=== PATIENT | female | born 1950 | race Caucasian/White ===

== ENCOUNTER 2017-07-22 13:27 | Inpatient (IN) ==
[2017-07-22] MEDS ORDERED: SODIUM CHLORIDE 0.9% 1,000 ML IV STA (15:26)
[2017-07-22 15:34] LABS: Basophils % 0.3 % (0.0-0.8); Eosinophils # 0.1 10*3/uL (0.0-0.87); Eosinophils % 1.2 % (0.00-10.9); Hematocrit 36.9 VOL% (35.7-47.0); Hemoglobin 12.1 GM/DL (12.0-16.0); Immature Granulocytes % 0.5 %; Immature Granulocytes Absolute 0.03 #; Lymphocytes # 1.1 10*3/uL (1.4-4.0); Lymphocytes % 16.5 % (21.3-54.2); Mean Corpuscular HGB Conc 32.8 GM/DL (32-36); Mean Corpuscular Hemoglobin 29 PG (27-34); Mean Corpuscular Volume 89.1 FL (87-102); Mean Platelet Volume 9.7 FL (9.6-12.0); Monocytes # 0.3 10*3/uL (0.11-0.8); Monocytes % 4.9 % (1.7-12.7); Neutrophils % 76.6 % (38.7-73.9); Platelet Count 243 T/CUMM (130-400); Red Blood Count 4.14 MC/CUMM (3.8-5.5); Red Cell Distribution Width 13.4 % (9.3-17.3); White Blood Count 6.5 T/CUMM (4-12)
[2017-07-22 15:47] LABS: PT Patient Result 10.7 SECS; Partial Thromboplastin Time 27.7 SECS (0-40)
[2017-07-22 15:48] LABS: Alanine Aminotransferase 18 U/L (13-56); Alkaline Phosphatase 98 U/L (45-117); Aspartate Amino Transferase 19 U/L (0-37); Calcium 9.2 MG/DL (8.5-10.1)
[2017-07-22 15:49] LABS: Amylase 44 U/L (25-115); Bilirubin,Total < 0.39 MG/DL (0.2-1.0); Blood Urea Nitrogen 20 MG/DL (7-18); Glucose 96 MG/DL (74-106); Osmolality,Calculated 268.4 MOS/KG (273-304); Potassium 3.8 MMOL/L (3.5-5.1); Sodium 133 MMOL/L (136-145); Total Protein 8.2 G/DL (6.4-8.3)
[2017-07-22 15:51] LABS: Troponin I Only < 0.015 NG/ML (0.00-0.045)
[2017-07-22 17:46] LABS: Apearance,Urine Slightly Hazy (Clear); Bacteria,Urine Moderate /HPF (Few); Bilirubin,Urine Negative (Negative); Blood, Urine Negative (Negative); Glucose,Urine (UA) Negative (Negative); Hyaline Casts,Urine 1 /LPF (0-3); Ketones,Urine Negative (Negative); Mucus,Urine Occasional /LPF (Occasional); Nitrite,Urine Negative (Negative); Protein,Urine Negative; RBC,Urine <1 /HPF (0-4); Squamous Epithelial Cell,Urine Occasional /HPF (0-10); Urine Color Yellow (Yellow); Urine Specific Gravity 1.006 (1.001-1.035); Urine Urobilinogen < 2.0 EU/DL (0.2-1.0); WBC,Urine 1 /HPF (0-6)
[2017-07-22 17:50] LABS: Barbiturates Screen,Urine Negative (Negative); Benzodiazepines Screen,Urine Negative (Negative); Cannabinoid Screen,Urine Negative (Negative); Opiate Screen,Urine Negative (Negative); Phencyclidine Screen,Urine Negative (Negative)
[2017-07-22] MEDS ORDERED: ONDANSETRON 4 MG/2 ML VIAL IV PRN (17:52)
[2017-07-23] MEDS: ZALEPLON 5 MG CAPSULE PO PRN (00:44)
[2017-07-23] MEDS: SODIUM CHLORIDE 0.9% 1,000 ML IV SCH ×2 (00:46→07:10)
[2017-07-23 05:08] LABS: Basophils % 0.2 % (0.0-0.8); Eosinophils # 0.1 10*3/uL (0.0-0.87); Eosinophils % 0.5 % (0.00-10.9); Hematocrit 35.1 VOL% (35.7-47.0); Hemoglobin 11.9 GM/DL (12.0-16.0); Immature Granulocytes % 0.5 %; Immature Granulocytes Absolute 0.06 #; Lymphocytes # 0.3 10*3/uL (1.4-4.0); Lymphocytes % 2.7 % (21.3-54.2); Mean Corpuscular HGB Conc 33.9 GM/DL (32-36); Mean Corpuscular Hemoglobin 30 PG (27-34); Mean Corpuscular Volume 86.9 FL (87-102); Mean Platelet Volume 9.9 FL (9.6-12.0); Monocytes # 0.3 10*3/uL (0.11-0.8); Monocytes % 2.3 % (1.7-12.7); Neutrophils # 10.3 10*3/uL (1.4-7.4); Neutrophils % 93.8 % (38.7-73.9); Platelet Count 223 T/CUMM (130-400); Red Blood Count 4.04 MC/CUMM (3.8-5.5); Red Cell Distribution Width 13.5 % (9.3-17.3)
[2017-07-23 05:34] LABS: Calcium 8.2 MG/DL (8.5-10.1); Osmolality,Calculated 272.1 MOS/KG (273-304); Potassium 3.8 MMOL/L (3.5-5.1)
[2017-07-23 05:45] LABS: Folate 23.2 NG/ML (5.4-24.0)
[2017-07-23 05:57] LABS: Band Neutrophils 1 % (0-10); Hypochromasia Slight; Lymphocytes 2 % (20-55); Microcytosis 1+; Segmented Neutrophils 95 % (50-85); Total Cells Counted 100
[2017-07-23 05:58] LABS: Platelet Estimate Normal
[2017-07-23 06:30] LABS: Carcinoembryonic Antigen 183.1 NG/ML (0.0-5.0)
[2017-07-23 06:36] LABS: Free T4 (Free Thyroxine) 1.06 NG/DL (0.76-1.46); Thyroid Stimulating Hormone 4.38 uIU/ml (0.358-3.74)
[2017-07-23] MEDS: DOCUSATE SODIUM 100 MG CAPSULE PO SCH ×2 (08:58→22:12)
[2017-07-23] MEDS: POLYETHYLENE GLYCOL POWDER 17 GM PACK PO SCH (08:59)
[2017-07-23] MEDS: PANTOPRAZOLE 40 MG VIAL IV SCH (09:09)
[2017-07-23] MEDS: MORPHINE 4 MG/1 ML VIAL IV PRN ×2 (15:15→18:30)
[2017-07-23] MEDS ORDERED: NF- (Mirabegron [Myrbetriq] 50 MG) PO SCH (21:00)
[2017-07-23] MEDS: AMITRIPTYLINE 25 MG TABLET PO SCH (22:15)
[2017-07-24] MEDS ORDERED: PROMETHAZINE 25 MG/1 ML VIAL IM ONE (07:00)
[2017-07-24] MEDS ORDERED: MIDAZOLAM 2 MG/2 ML VIAL ONE (07:03)
[2017-07-24] MEDS ORDERED: LIDOCAINE 1% 20 ML VIAL MISC INJ ONE (07:30)
[2017-07-24] MEDS ORDERED: MIDAZOLAM 2 MG/2 ML VIAL IV ONE (07:30)
[2017-07-24] MEDS ORDERED: LIDOCAINE 2% 20 ML VIAL RESP TX ONE (07:30)
[2017-07-24] MEDS: SODIUM CHLORIDE 0.9% 1,000 ML IV SCH ×2 (08:44→08:45)
[2017-07-24] MEDS: DOCUSATE SODIUM 100 MG CAPSULE PO SCH ×2 (11:48→21:00)
[2017-07-24] MEDS: CALCIUM (CARBONATE)/VITAMIN D 600 MG-400 UNIT TABLET PO SCH (11:48)
[2017-07-24] MEDS: VALSARTAN/HCTZ 160-12.5 MG TABLET PO SCH (11:49)
[2017-07-24] MEDS: POLYETHYLENE GLYCOL POWDER 17 GM PACK PO SCH (11:49)
[2017-07-24] MEDS: ESCITALOPRAM 10 MG TABLET PO SCH (11:49)
[2017-07-24] MEDS: ASPIRIN CHEW 81 MG TABLET PO SCH (11:49)
[2017-07-24] MEDS: LEVOTHYROXINE 75 MCG TABLET PO SCH (11:49)
[2017-07-24] MEDS: PANTOPRAZOLE 40 MG VIAL IV SCH (11:50)
[2017-07-24] MEDS: ESTRADIOL 1 MG TABLET PO SCH (11:50)
[2017-07-24] MEDS: DEXAMETHASONE 4 MG TABLET PO SCH (20:59)
[2017-07-24] MEDS: AMITRIPTYLINE 25 MG TABLET PO SCH (21:00)
[2017-07-24] MEDS: MORPHINE 4 MG/1 ML VIAL IV PRN (21:25)
[2017-07-25] MEDS: SODIUM CHLORIDE 0.9% 1,000 ML IV SCH (00:03)
[2017-07-25] MEDS: MORPHINE 4 MG/1 ML VIAL IV PRN ×2 (00:54→19:41)
[2017-07-25 05:42] LABS: Basophils % 0.2 % (0.0-0.8); Hematocrit 33.1 VOL% (35.7-47.0); Hemoglobin 10.6 GM/DL (12.0-16.0); Immature Granulocytes % 0.5 %; Immature Granulocytes Absolute 0.03 #; Lymphocytes # 0.5 10*3/uL (1.4-4.0); Lymphocytes % 8.3 % (21.3-54.2); Mean Corpuscular Hemoglobin 29 PG (27-34); Mean Corpuscular Volume 89.9 FL (87-102); Mean Platelet Volume 9.7 FL (9.6-12.0); Monocytes # 0.1 10*3/uL (0.11-0.8); Monocytes % 1.8 % (1.7-12.7); Neutrophils # 5.4 10*3/uL (1.4-7.4); Neutrophils % 89.2 % (38.7-73.9); Platelet Count 219 T/CUMM (130-400); Red Blood Count 3.68 MC/CUMM (3.8-5.5); Red Cell Distribution Width 13.4 % (9.3-17.3)
[2017-07-25 06:11] LABS: Calcium 7.6 MG/DL (8.5-10.1); Osmolality,Calculated 276.5 MOS/KG (273-304); Potassium 3.8 MMOL/L (3.5-5.1)
[2017-07-25] MEDS: VALSARTAN/HCTZ 160-12.5 MG TABLET PO SCH (08:28)
[2017-07-25] MEDS: ASPIRIN CHEW 81 MG TABLET PO SCH (08:28)
[2017-07-25] MEDS: ESTRADIOL 1 MG TABLET PO SCH (08:28)
[2017-07-25] MEDS: LEVOTHYROXINE 75 MCG TABLET PO SCH (08:28)
[2017-07-25] MEDS: ESCITALOPRAM 10 MG TABLET PO SCH (08:28)
[2017-07-25] MEDS: DOCUSATE SODIUM 100 MG CAPSULE PO SCH ×2 (08:29→21:43)
[2017-07-25] MEDS: DEXAMETHASONE 4 MG TABLET PO SCH ×3 (08:29→21:43)
[2017-07-25] MEDS: PANTOPRAZOLE 40 MG VIAL IV SCH (08:29)
[2017-07-25] MEDS: POLYETHYLENE GLYCOL POWDER 17 GM PACK PO SCH (09:31)
[2017-07-25] MEDS: CALCIUM (CARBONATE)/VITAMIN D 600 MG-400 UNIT TABLET PO SCH (09:32)
[2017-07-25] MEDS: AMITRIPTYLINE 25 MG TABLET PO SCH (21:43)
[2017-07-25] MEDS: ZALEPLON 5 MG CAPSULE PO PRN (23:56)
[2017-07-26] MEDS: MORPHINE 4 MG/1 ML VIAL IV PRN ×2 (03:14→21:34)
[2017-07-26 06:02] LABS: Basophils % 0.1 % (0.0-0.8); Hematocrit 35.6 VOL% (35.7-47.0); Hemoglobin 11.9 GM/DL (12.0-16.0); Immature Granulocytes % 0.8 %; Immature Granulocytes Absolute 0.06 #; Lymphocytes # 0.8 10*3/uL (1.4-4.0); Lymphocytes % 10.9 % (21.3-54.2); Mean Corpuscular HGB Conc 33.4 GM/DL (32-36); Mean Corpuscular Hemoglobin 29 PG (27-34); Mean Platelet Volume 9.9 FL (9.6-12.0); Monocytes # 0.3 10*3/uL (0.11-0.8); Monocytes % 3.8 % (1.7-12.7); Neutrophils % 84.4 % (38.7-73.9); Platelet Count 263 T/CUMM (130-400); Red Blood Count 4.09 MC/CUMM (3.8-5.5); Red Cell Distribution Width 13.6 % (9.3-17.3); White Blood Count 7.1 T/CUMM (4-12)
[2017-07-26 06:18] LABS: Osmolality,Calculated 278.5 MOS/KG (273-304); Potassium 3.8 MMOL/L (3.5-5.1)
[2017-07-26] MEDS: ESCITALOPRAM 10 MG TABLET PO SCH (09:06)
[2017-07-26] MEDS: CALCIUM (CARBONATE)/VITAMIN D 600 MG-400 UNIT TABLET PO SCH (09:06)
[2017-07-26] MEDS: ASPIRIN CHEW 81 MG TABLET PO SCH (09:06)
[2017-07-26] MEDS: POLYETHYLENE GLYCOL POWDER 17 GM PACK PO SCH (09:06)
[2017-07-26] MEDS: DOCUSATE SODIUM 100 MG CAPSULE PO SCH ×2 (09:06→21:26)
[2017-07-26] MEDS: LEVOTHYROXINE 75 MCG TABLET PO SCH (09:07)
[2017-07-26] MEDS: ESTRADIOL 1 MG TABLET PO SCH (09:07)
[2017-07-26] MEDS: DEXAMETHASONE 4 MG TABLET PO SCH ×3 (09:07→21:26)
[2017-07-26] MEDS: VALSARTAN/HCTZ 160-12.5 MG TABLET PO SCH (09:07)
[2017-07-26] MEDS: PANTOPRAZOLE 40 MG VIAL IV SCH (09:07)
[2017-07-26] MEDS ORDERED: DIAZEPAM 5 MG TABLET PO ONE (10:04)
[2017-07-26] MEDS: AMITRIPTYLINE 25 MG TABLET PO SCH (21:26)
[2017-07-27] MEDS: MORPHINE 4 MG/1 ML VIAL IV PRN (06:23)
[2017-07-27] MEDS: ASPIRIN CHEW 81 MG TABLET PO SCH (08:47)
[2017-07-27] MEDS: DOCUSATE SODIUM 100 MG CAPSULE PO SCH (08:48)
[2017-07-27] MEDS: CALCIUM (CARBONATE)/VITAMIN D 600 MG-400 UNIT TABLET PO SCH (08:48)
[2017-07-27] MEDS: ESTRADIOL 1 MG TABLET PO SCH (08:49)
[2017-07-27] MEDS: PANTOPRAZOLE 40 MG VIAL IV SCH (08:49)
[2017-07-27] MEDS: POLYETHYLENE GLYCOL POWDER 17 GM PACK PO SCH (08:49)
[2017-07-27] MEDS: LEVOTHYROXINE 75 MCG TABLET PO SCH (08:49)
[2017-07-27] MEDS: VALSARTAN/HCTZ 160-12.5 MG TABLET PO SCH (08:49)
[2017-07-27] MEDS: DEXAMETHASONE 4 MG TABLET PO SCH ×2 (08:49→16:54)
[2017-07-27] MEDS: ESCITALOPRAM 10 MG TABLET PO SCH (08:49)
[2017-07-27 16:58] VITALS: BP 154/87
== END 2017-07-27 16:58 | disposition home or self-care (01) | DRG 181 ==
LOC: N.ED 13:27 → SUATTDRO 16:47 → N.EDINP 16:47 → N.3E 18:37
PROVIDERS: ADMIT Internal Medicine; ATTEND Internal Medicine
PROC: BRONCHB (2017-07-24 07:50)

== ENCOUNTER 2017-08-24 17:30 | Inpatient (IN) ==
[2017-08-24 18:19] LABS: Basophils % 0.2 % (0.0-0.8); Eosinophils % 0.2 % (0.00-10.9); Hematocrit 36.1 VOL% (35.7-47.0); Immature Granulocytes % 1.6 %; Immature Granulocytes Absolute 0.19 #; Lymphocytes # 0.7 10*3/uL (1.4-4.0); Lymphocytes % 5.4 % (21.3-54.2); Mean Corpuscular Hemoglobin 29 PG (27-34); Mean Corpuscular Volume 81.3 FL (87-102); Mean Platelet Volume 8.7 FL (9.6-12.0); Monocytes # 0.5 10*3/uL (0.11-0.8); Monocytes % 3.8 % (1.7-12.7); Neutrophils # 10.6 10*3/uL (1.4-7.4); Neutrophils % 88.8 % (38.7-73.9); Platelet Count 190 T/CUMM (130-400); Red Blood Count 4.44 MC/CUMM (3.8-5.5)
[2017-08-24 18:46] LABS: Albumin 2.7 G/DL (3.4-5.0); Bilirubin,Total 0.8 MG/DL (0.2-1.0); Calcium 7.5 MG/DL (8.5-10.1); Osmolality,Calculated 255.1 MOS/KG (273-304); Potassium 4.2 MMOL/L (3.5-5.1); Total Protein 5.9 G/DL (6.4-8.3)
[2017-08-24 18:50] LABS: Lactic Acid 2.1 MMOL/L (0.4-2.0)
[2017-08-24 20:34] LABS: Apearance,Urine CLEAR (Clear); Bilirubin,Urine Negative (Negative); Blood, Urine Negative (Negative); Glucose,Urine (UA) Negative (Negative); Ketones,Urine 5 mg/dL (Negative); Nitrite,Urine Negative (Negative); Protein,Urine Negative; Urine Color Yellow (Yellow); Urine Specific Gravity 1.014 (1.001-1.035); Urine Urobilinogen < 2.0 EU/DL (0.2-1.0); WBC,Urine 1 /HPF (0-6)
[2017-08-25 01:00] LABS: Uric Acid 3.8 MG/DL (2.6-6.0)
[2017-08-25 01:03] LABS: Albumin 1.7 G/DL (3.4-5.0); Bilirubin,Total 0.6 MG/DL (0.2-1.0); Calcium 6.3 MG/DL (8.5-10.1); Osmolality,Calculated 264.8 MOS/KG (273-304); Potassium 3.8 MMOL/L (3.5-5.1); Total Protein 4.4 G/DL (6.4-8.3)
[2017-08-25 01:14] LABS: Basophils % 0.1 % (0.0-0.8); Eosinophils % 0.3 % (0.00-10.9); Hematocrit 28.1 VOL% (35.7-47.0); Hemoglobin 9.7 GM/DL (12.0-16.0); Immature Granulocytes % 1.5 %; Immature Granulocytes Absolute 0.11 #; Lymphocytes # 0.3 10*3/uL (1.4-4.0); Lymphocytes % 4.1 % (21.3-54.2); Mean Corpuscular HGB Conc 34.5 GM/DL (32-36); Mean Corpuscular Hemoglobin 29 PG (27-34); Mean Corpuscular Volume 84.9 FL (87-102); Monocytes # 0.3 10*3/uL (0.11-0.8); Monocytes % 3.6 % (1.7-12.7); Neutrophils # 6.6 10*3/uL (1.4-7.4); Neutrophils % 90.4 % (38.7-73.9); Platelet Count 123 T/CUMM (130-400); Red Blood Count 3.31 MC/CUMM (3.8-5.5); Red Cell Distribution Width 13.9 % (9.3-17.3); White Blood Count 7.3 T/CUMM (4-12)
[2017-08-25 02:41] LABS: Band Neutrophils 3 % (0-10); Lymphocytes 5 % (20-55); Platelet Estimate Normal; Segmented Neutrophils 90 % (50-85); Total Cells Counted 100
[2017-08-26 04:14] LABS: Hematocrit 24.8 VOL% (35.7-47.0); Hemoglobin 8.3 GM/DL (12.0-16.0); Immature Granulocytes Absolute 0.05 #; Lymphocytes # 0.2 10*3/uL (1.4-4.0); Lymphocytes % 4.5 % (21.3-54.2); Mean Corpuscular HGB Conc 33.5 GM/DL (32-36); Mean Corpuscular Hemoglobin 29 PG (27-34); Mean Corpuscular Volume 86.1 FL (87-102); Mean Platelet Volume 8.9 FL (9.6-12.0); Monocytes # 0.2 10*3/uL (0.11-0.8); Monocytes % 3.9 % (1.7-12.7); Neutrophils # 4.4 10*3/uL (1.4-7.4); Neutrophils % 90.6 % (38.7-73.9); Platelet Count 113 T/CUMM (130-400); Red Blood Count 2.88 MC/CUMM (3.8-5.5); Red Cell Distribution Width 13.9 % (9.3-17.3); White Blood Count 4.8 T/CUMM (4-12)
[2017-08-26 04:33] LABS: Albumin 1.4 G/DL (3.4-5.0); Bilirubin,Total 0.5 MG/DL (0.2-1.0); Osmolality,Calculated 271.1 MOS/KG (273-304); Potassium 3.2 MMOL/L (3.5-5.1)
[2017-08-26 05:14] LABS: Band Neutrophils 5 % (0-10); Hypochromasia 1+; Lymphocytes 5 % (20-55); Ovalocytes Slight; Platelet Estimate Decreased; Segmented Neutrophils 88 % (50-85); Total Cells Counted 100
[2017-08-27 04:58] LABS: Basophils % 0.2 % (0.0-0.8); Eosinophils % 0.2 % (0.00-10.9); Hematocrit 32.7 VOL% (35.7-47.0); Hemoglobin 11.4 GM/DL (12.0-16.0); Immature Granulocytes % 1.5 %; Immature Granulocytes Absolute 0.08 #; Lymphocytes # 0.3 10*3/uL (1.4-4.0); Lymphocytes % 5.2 % (21.3-54.2); Mean Corpuscular HGB Conc 34.9 GM/DL (32-36); Mean Corpuscular Hemoglobin 29 PG (27-34); Mean Corpuscular Volume 82.4 FL (87-102); Monocytes # 0.3 10*3/uL (0.11-0.8); Monocytes % 4.8 % (1.7-12.7); Neutrophils # 4.6 10*3/uL (1.4-7.4); Neutrophils % 88.1 % (38.7-73.9); Platelet Count 129 T/CUMM (130-400); Red Blood Count 3.97 MC/CUMM (3.8-5.5); Red Cell Distribution Width 13.8 % (9.3-17.3); White Blood Count 5.2 T/CUMM (4-12)
[2017-08-27 05:25] LABS: Albumin 1.7 G/DL (3.4-5.0); Bilirubin,Total 0.4 MG/DL (0.2-1.0); Calcium 6.8 MG/DL (8.5-10.1); Osmolality,Calculated 272.1 MOS/KG (273-304); Potassium 3.9 MMOL/L (3.5-5.1); Total Protein 4.7 G/DL (6.4-8.3)
[2017-08-28 04:11] LABS: Basophils % 0.2 % (0.0-0.8); Eosinophils % 0.6 % (0.00-10.9); Hematocrit 31.7 VOL% (35.7-47.0); Hemoglobin 11.5 GM/DL (12.0-16.0); Immature Granulocytes % 2.2 %; Immature Granulocytes Absolute 0.14 #; Lymphocytes # 0.5 10*3/uL (1.4-4.0); Lymphocytes % 7.2 % (21.3-54.2); Mean Corpuscular HGB Conc 36.3 GM/DL (32-36); Mean Corpuscular Hemoglobin 30 PG (27-34); Mean Corpuscular Volume 82.8 FL (87-102); Mean Platelet Volume 8.9 FL (9.6-12.0); Monocytes # 0.4 10*3/uL (0.11-0.8); Monocytes % 5.8 % (1.7-12.7); Neutrophils # 5.4 10*3/uL (1.4-7.4); Platelet Count 154 T/CUMM (130-400); Red Blood Count 3.83 MC/CUMM (3.8-5.5); Red Cell Distribution Width 13.8 % (9.3-17.3); White Blood Count 6.4 T/CUMM (4-12)
[2017-08-28 04:31] LABS: Alanine Aminotransferase 27 U/L (13-56); Albumin 1.8 G/DL (3.4-5.0); Alkaline Phosphatase 99 U/L (45-117); Aspartate Amino Transferase 14 U/L (0-37); Bilirubin,Total < 0.39 MG/DL (0.2-1.0); Blood Urea Nitrogen 11 MG/DL (7-18); Calcium 6.8 MG/DL (8.5-10.1); Glucose 118 MG/DL (74-106); Osmolality,Calculated 269.1 MOS/KG (273-304); Potassium 4.1 MMOL/L (3.5-5.1); Sodium 135 MMOL/L (136-145); Total Protein 4.7 G/DL (6.4-8.3)
[2017-08-29 09:00] VITALS: BP 150/78
== END 2017-08-29 14:35 | disposition hospice, home (50) | DRG 641 ==
LOC: N.EDINP 17:30 → N.ED 17:30 → N.4E 23:12
PROVIDERS: ADMIT Specialist; ATTEND Specialist